=== PATIENT | female | born 1985 | race Caucasian/White ===

== ENCOUNTER 2018-04-17 10:39 | Emergency (ER) | payer MEDICAID ==
[2018-04-17 11:44] LABS: URINE PH (Dip) POC 7.5 (5.0-8.5)
[2018-04-17 11:44] LABS: URINE BLOOD (Dip) POC 2+ (NEGATIVE); URINE GLUCOSE (Dip) POC Negative (NEGATIVE); URINE KETONES (Dip) POC Negative (NEGATIVE); URINE LEUKOCYTE EST (Dip) POC Negative (NEGATIVE); URINE NITRITE (Dip) POC Negative (NEGATIVE); URINE TOTAL PROTEIN POC Negative (NEGATIVE)
[2018-04-17] MEDS: HYDROCODONE/APAP (5/325) TAB PO (12:07)
[2018-04-17] MEDS: KETOROLAC 60 MG INJ IM (12:07)
== END 2018-04-17 13:03 | disposition home or self-care (01) ==
LOC: FTE 10:39
DX: M54.5 Low back pain (principal)
CPT/HCPCS: 72131; 81003; 81025; 96372; 99285-25

== ENCOUNTER 2018-06-03 23:20 | Emergency (ER) | payer OTHER, MEDICAID ==
[2018-06-04] MEDS: LORAZEPAM 1 MG TAB PO (02:17)
[2018-06-04] MEDS: KETOROLAC 15 MG INJ IM (02:20)
[2018-06-04 02:23] LABS: ADD UMIC YES; UR ASCORBIC ACID NEGATIVE (NEGATIVE); UR BACTERIA FEW /HPF (NONE SEEN); UR BILIRUBIN (Dip) NEGATIVE (NEGATIVE); UR BLOOD (Dip) 1+ mg/dL (NEGATIVE); UR CLARITY CLEAR (CLEAR); UR COLOR YELLOW (YELLOW); UR GLUCOSE (Dip) NEGATIVE (NEGATIVE); UR KETONES (Dip) NEGATIVE (NEGATIVE); UR LEUKOCYTE ESTERASE (Dip) NEGATIVE Leu/ul (NEGATIVE); UR NITRITE (Dip) NEGATIVE (NEGATIVE); UR RBC 2 /HPF (0-5); UR SPECIFIC GRAVITY (Dip) 1.012 (1.003-1.030); UR SQUAMOUS EPITHELIAL CELL FEW /HPF (FEW); UR TOTAL PROTEIN (Dip) NEGATIVE (NEGATIVE); UR UROBILINOGEN (Dip) NEGATIVE (NEGATIVE); UR WBC 2 /HPF (0-5)
== END 2018-06-04 03:00 | disposition home or self-care (01) ==
LOC: FTE 23:20
DX: M54.5 Low back pain (principal)
CPT/HCPCS: 81001; 81025; 96372; 99284-25

== ENCOUNTER 2018-12-11 11:54 | Emergency (ER) | payer OTHER ==
[2018-12-11] MEDS: IBUPROFEN 800 MG TAB PO (14:22)
[2018-12-11] MEDS: ONDANSETRON (ODT) 4 MG TAB ODT (14:22)
== END 2018-12-11 15:47 | disposition home or self-care (01) ==
LOC: FTE 11:54
DX: H00.025 Hordeolum internum left lower eyelid (principal)
CPT/HCPCS: 99283; Z7502